=== PATIENT | male | born 1990 | race African-American/Black ===

== ENCOUNTER 2021-05-15 16:09 | Emergency (ER) | payer OTHER ==
[2021-05-15] MEDS ORDERED: Ibuprofen 200 MG TAB ONE (17:05)
[2021-05-15] MEDS ORDERED: Acetaminophen 500 MG TAB ONE (17:05)
[2021-05-15] MEDS ORDERED: Penicillin V Potassium 250 MG TAB PO SCH (17:30)
== END 2021-05-15 17:58 ==
LOC: EEVIPCON 16:09 → ERS 16:09
DX: M27.2 Inflammatory conditions of jaws (principal)
CPT/HCPCS: 99283